=== PATIENT | male | born 1950 | race Caucasian/White ===

== ENCOUNTER 2019-05-01 11:49 | Day surgery (SDC) | payer BC ==
[~2019-05-01] VITALS: Ht 172.7 cm; Wt 86.6 kg
[~2019-05-01 11:49] MED LIST: Aspir 8181 MG PO; CALCIUM 600 +1 EA11 PO; LOSARTAN POTAS100 MG PO; OMEPRAZOLE20 MG PO; Once Daily1 EACH PO; TUMS500 MG PO; Ziac 10-6.25 M1 EACH PO
--- NOTE | 2019-05-01 12:37 | NUR ---
05/01/19 1237 Kenyatta Romeo 1 TRY, VEIN MOVED 2 TRY ABOVE, TOUGH DIDNT GET FLASH, HARDLY BLED 3 HAND GOOD
== END 2019-05-01 14:02 | disposition home or self-care (01) ==
LOC: ORSCSDS 11:49
PROVIDERS: Internal Medicine Gastroenterology
PROC: 0DJD8ZZ Inspection of Lower Intestinal Tract, Via Natural or Artificial Opening Endoscopic (ICD-10-PCS; principal; 2019-05-01 13:00)
DX: Z12.11 Encounter for screening for malignant neoplasm of colon (principal); Z86.010 Personal history of colon polyps; K57.30 Diverticulosis of large intestine without perforation or abscess without bleeding; G47.30 Sleep apnea, unspecified; Z80.0 Family history of malignant neoplasm of digestive organs; I10 Essential (primary) hypertension; K21.9 Gastro-esophageal reflux disease without esophagitis; E66.9 Obesity, unspecified; Z68.30 Body mass index [BMI] 30.0-30.9, adult; Z79.82 Long term (current) use of aspirin; Z79.899 Other long term (current) drug therapy
CPT/HCPCS: J2704; J7120

== ENCOUNTER 2019-08-24 05:40 | Day surgery (SDC) | payer BC ==
[~2019-08-24] VITALS: Ht 172.7 cm; Wt 90.1 kg
[~2019-08-24 05:40] MED LIST changes: +HYDCOR2.5C PR; +TADA10TA PO
--- NOTE | 2019-08-24 06:35 | NUR ---
PT ADMITTED TO [facility]. AGREES WITH PLANNED SURGERY. LUNG SOUNDS CLEAR.
--- NOTE | 2019-08-24 10:29 | NUR ---
Patient up to Ambulate independently. Gait steady. Discharge instructions reviewed with patient. Patient verbalizes understanding. Copy given to patient to take home. Discharged via wheelchair to private car for ride home. ADDITIONAL PAIN PILL GIVEN WHILE PATIENT DRESSING DUE TO INCREASED PAIN WITH MOVEMENT.
--- NOTE | 2019-08-24 12:54 | NUR ---
CONSENT OBTAINED FROM PATIENT TO ACCESS RECORDS AND WITNESS SURGICAL PROCEDURE AT THE OR. AT 0645 CC
== END 2019-08-24 22:42 | disposition home or self-care (01) ==
LOC: ORSCMMR 05:40 → ORD 07:30 → ORSCMMR 22:42
PROVIDERS: Surgery
PROC: 0WUF0JZ Supplement Abdominal Wall with Synthetic Substitute, Open Approach (ICD-10-PCS; principal; 2019-08-24 07:30)
DX: K42.9 Umbilical hernia without obstruction or gangrene (principal); I10 Essential (primary) hypertension; G47.33 Obstructive sleep apnea (adult) (pediatric); K21.9 Gastro-esophageal reflux disease without esophagitis; Z79.899 Other long term (current) drug therapy; Z79.82 Long term (current) use of aspirin
CPT/HCPCS: A9270-GY; C1781; J0690; J1100; J1885; J2250; J2405; J2704; J2710; J3010; J7120

== ENCOUNTER 2022-07-24 08:25 | Inpatient (IN) | payer MEDICARE, BC ==
[~2022-07-24] VITALS: Ht 172.7 cm; Wt 94.3 kg
[2022-07-24 08:43] LABS: Hematocrit 45.1 % (37.0-53.0); Hemoglobin 15.4 g/dL (13.5-17.5); Mean Corpuscular HGB 30.4 pg (26.0-34.0); Mean Corpuscular HGB Conc 34.1 g/dL (31.5-36.5); Mean Corpuscular Volume 89 fL (80-100); Mean Platelet Volume 10.2 fL (9.1-12.4); Platelet Count 223 K/mm3 (150-400); RDW Coefficient Variation 13.2 % (11.7-14.2); RDW Standard Deviation 42.9 fL (35.1-46.3); Red Blood Cell Count 5.07 M/mm3 (4.30-5.90); White Blood Cell Count 13.43 K/mm3 (4.00-11.30)
[2022-07-24 09:05] LABS: Albumin, Blood 3.4 g/dL (3.4-5.0); Bilirubin, Total 0.5 mg/dL (0.1-1.0); Bun/Creatinine Ratio 26.6 (12.0-20.0); Calcium, Blood 8.3 mg/dL (8.5-10.1); Creatinine, Blood 0.9 mg/dL (0.60-1.20); Globulin, Blood 3.4 g/dL (2.2-4.0); Potassium, Blood 3.4 mmol/L (3.5-5.5); Total Protein, Blood 6.8 g/dL (6.4-8.2)
[2022-07-24 10:42] LABS: BASOPHILS PERCENT MAN 0 % (0-2); EOSINOPHILS ABSOLUTE MAN 0.13 K/mm3 (0.00-0.68); EOSINOPHILS PERCENT MAN 1 % (0-6); LYMPHOCYTES ABSOLUTE MAN 4.56 K/mm3 (0.84-5.20); LYMPHOCYTES PERCENT MAN 26 % (21-46); MONOCYTES ABSOLUTE MAN 1.61 K/mm3 (0.16-1.47); MONOCYTES PERCENT MAN 12 % (4-13); NEUTROPHILS ABSOLUTE MAN 7.11 K/mm3 (1.96-9.15); SEG NEUTROPHILS PERCENT MAN 53 % (41-73); TOTAL CELLS COUNTED 100
[2022-07-24 10:43] LABS: LYMPHOCYTES % ATYPICAL MANUAL 8 % (0-0)
[2022-07-24 10:57] LABS: Influenza A, PCR NEGATIVE (NEGATIVE); Influenza B, PCR NEGATIVE (NEGATIVE); Resp Syncytial Virus, PCR NEGATIVE (NEGATIVE); SARS-Cov-2 (COVID-19) PCR, MMC NEGATIVE (NEGATIVE)
[2022-07-24 11:38] LABS: PCO2 Arterial 38.8 mmHg (35-45); PO2 Arterial 54.4 mmHg (80-100); pH Blood Arterial 7.42 (7.35-7.45)
[2022-07-24 12:51] LABS: International Normalized Ratio 0.98; Prothrombin Time Results 10.3 Sec (9.7-11.5)
--- NOTE | 2022-07-24 17:28 | NUR ---
FULL REPORT GIVEN TO GINA ORR WITH [facility]. DENIES QUESTIONS OR CONCERNS.
== END 2022-07-24 18:00 | disposition short-term general hospital (02) | DRG 215 ==
LOC: ER 08:25 → ICUW 12:02 → PCU 12:11 → ICUW 12:11
PROVIDERS: Emergency Medicine; Internal Medicine Cardiovascular Disease; Nurse Practitioner Acute Care; Physician Assistant; ADMIT Internal Medicine
PROC: 02HA3RZ Insertion of Short-term External Heart Assist System into Heart, Percutaneous Approach (ICD-10-PCS; principal; 2022-07-24)
PROC: 5A0221D Assistance with Cardiac Output using Impeller Pump, Continuous (ICD-10-PCS; 2022-07-24)
PROC: B211YZZ Fluoroscopy of Multiple Coronary Arteries using Other Contrast (ICD-10-PCS; 2022-07-24)
PROC: 02HP32Z Insertion of Monitoring Device into Pulmonary Trunk, Percutaneous Approach (ICD-10-PCS; 2022-07-24)
PROC: 5A09357 Assistance with Respiratory Ventilation, Less than 24 Consecutive Hours, Continuous Positive Airway Pressure (ICD-10-PCS; 2022-07-24)
PROC: B215YZZ Fluoroscopy of Left Heart using Other Contrast (ICD-10-PCS; 2022-07-24)
DX: I21.4 Non-ST elevation (NSTEMI) myocardial infarction (principal); R57.0 Cardiogenic shock; I50.41 Acute combined systolic (congestive) and diastolic (congestive) heart failure; J96.01 Acute respiratory failure with hypoxia; I24.9 Acute ischemic heart disease, unspecified; I25.10 Atherosclerotic heart disease of native coronary artery without angina pectoris; I11.0 Hypertensive heart disease with heart failure; E11.65 Type 2 diabetes mellitus with hyperglycemia; E78.5 Hyperlipidemia, unspecified; G47.33 Obstructive sleep apnea (adult) (pediatric); K21.9 Gastro-esophageal reflux disease without esophagitis; I25.5 Ischemic cardiomyopathy; Z20.822 Contact with and (suspected) exposure to COVID-19; Z77.22 Contact with and (suspected) exposure to environmental tobacco smoke (acute) (chronic); Z98.52 Vasectomy status; Z98.890 Other specified postprocedural states; Z88.0 Allergy status to penicillin; Z79.899 Other long term (current) drug therapy; Z79.82 Long term (current) use of aspirin; Z99.81 Dependence on supplemental oxygen
CPT/HCPCS: 0241U; 33990; 36600; 71045; 71260; 76937; 80053; 82803; 83605; 83880; 84484; 85025; 85347; 85610; 93005; 93010; 93308; 93321; 93460; 96374-59; 96375; 99152; 99153; 99285-25; A9270; C1751; C1760; C1769; C1887; C1894; J1644; J1940; J2250; J2270; J2370; J3010; J7030; J7040; J7042; J7050; J7060; Q9967

== ENCOUNTER 2022-08-05 12:44 | Emergency (ER) | payer BC ==
[~2022-08-05] VITALS: Ht 170.2 cm; Wt 81.7 kg
== END 2022-08-05 15:45 | disposition home or self-care (01) ==
LOC: ER 12:44
DX: Z48.00 Encounter for change or removal of nonsurgical wound dressing (principal); I10 Essential (primary) hypertension; Z79.82 Long term (current) use of aspirin; Z79.899 Other long term (current) drug therapy
CPT/HCPCS: 99283

== ENCOUNTER 2022-08-14 03:28 | Inpatient (IN) | payer MEDICARE, BC ==
[~2022-08-14] VITALS: Ht 172.7 cm; Wt 88.4 kg
[2022-08-14] MEDS ORDERED: PANTOPRAZOLE SO40 M2 PO (03:48)
[2022-08-14 03:50] LABS: BASOPHILS ABSOLUTE AUTO 0.02 K/mm3 (0.00-0.23); BASOPHILS PERCENT AUTO 0 % (0-2); EOSINOPHILS ABSOLUTE AUTO 0.02 K/mm3 (0.00-0.68); EOSINOPHILS PERCENT AUTO 0 % (0-6); Hematocrit 32.7 % (37.0-53.0); Hemoglobin 10.8 g/dL (13.5-17.5); IMMATURE GRAN ABSOLUTE AUTO 0.04 K/mm3 (0.00-0.10); IMMATURE GRAN PERCENT AUTO 0 % (0-1); LYMPHOCYTES ABSOLUTE AUTO 0.68 K/mm3 (0.84-5.20); LYMPHOCYTES PERCENT AUTO 7 % (21-46); MONOCYTES ABSOLUTE AUTO 0.58 K/mm3 (0.16-1.47); MONOCYTES PERCENT AUTO 6 % (4-13); Mean Corpuscular HGB 30.2 pg (26.0-34.0); Mean Corpuscular Volume 91 fL (80-100); Mean Platelet Volume 9.5 fL (9.1-12.4); NEUTROPHILS ABSOLUTE AUTO 8.49 K/mm3 (1.96-9.15); NEUTROPHILS PERCENT AUTO 86 % (41-73); Platelet Count 278 K/mm3 (150-400); RDW Coefficient Variation 14.5 % (11.7-14.2); RDW Standard Deviation 48.1 fL (35.1-46.3); Red Blood Cell Count 3.58 M/mm3 (4.30-5.90); White Blood Cell Count 9.83 K/mm3 (4.00-11.30)
[2022-08-14] MEDS ORDERED: ATOR80 PO (03:50)
[2022-08-14] MEDS ORDERED: BRILINTA90 M2 PO (03:52)
[2022-08-14] MEDS ORDERED: METO25ER PO (03:52)
[2022-08-14] MEDS ORDERED: FARXIGA10 MG PO (03:52)
[2022-08-14] MEDS ORDERED: ENTRESTO 49 MG1 EAC2 (03:53)
[2022-08-14] MEDS ORDERED: SPIR25 PO (03:53)
[2022-08-14] MEDS ORDERED: TAMS.4ER PO (03:54)
[2022-08-14] MEDS ORDERED: POTCHL20ER PO (03:54)
[2022-08-14 04:09] LABS: Albumin, Blood 2.7 g/dL (3.4-5.0); Albumin/Globulin Ratio 0.7 (0.8-1.8); Bilirubin, Total 0.9 mg/dL (0.1-1.0); Bun/Creatinine Ratio 21.5 (12.0-20.0); Calcium, Blood 8.2 mg/dL (8.5-10.1); Creatinine, Blood 0.84 mg/dL (0.60-1.20); Globulin, Blood 3.7 g/dL (2.2-4.0); Potassium, Blood 3.8 mmol/L (3.5-5.5); Total Protein, Blood 6.4 g/dL (6.4-8.2)
[2022-08-14 04:33] LABS: Influenza A, PCR NEGATIVE (NEGATIVE); Influenza B, PCR NEGATIVE (NEGATIVE); Resp Syncytial Virus, PCR NEGATIVE (NEGATIVE); SARS-Cov-2 (COVID-19) PCR, MMC NEGATIVE (NEGATIVE)
[2022-08-14 06:50] LABS: Source, Urine Foley catheter
[2022-08-14 07:02] LABS: Bilirubin, Urine Neg (Neg); Blood, Urine 5+ (Neg); Glucose Qualitative, Urine 4+ (Neg); Ketones, Urine 2+ (Neg); Leukocyte Esterase, Urine 3+ (Neg); Nitrite, Urine Pos (Neg); Protein, Urine 3+ (Neg); Specific Gravity, Urine 1.015 (1.003-1.022); Urobilinogen, Urine 1+ (Normal)
[2022-08-14 07:10] LABS: Appearance, Urine Hazy (Clear); Bacteria Few /hpf; Color, Urine Brown (P-Yellow); Red Blood Cells, Urine TNTC /hpf (0-2); Squamous Epithelial Cells Rare /hpf (Few); White Blood Cells, Urine TNTC /hpf (0-5); Yeast/Fungi Urine Few /hpf
--- NOTE | 2022-08-14 18:10 | NUR ---
PCU ADMIT / END OF SHIFT NOTE PT BROUGHT TO PCU-14 BY ANGELA FROM ER @ 2434. PT A&O X4, ABLE TO STAND & WEAKLY AMBULATE FROM [facility] TO PCU BED. PT REPORTING DIZZINESS W/ SITTING UP. PT BP LOW, OTHERWISE VSS. PT REPORTING BP HAS BEEN RUNNING LOW EVER SINCE STARTING BP MEDICATIONS. SPO2 > 92% ON RA. PT W/ THOMAS CATH IN PLACE THAT PT REPORTS HAVING BEEN CHANGED IN ER. THOMAS CATH DRAING DARK YELLOW URINE. PT C/O "SHIVERING" AT ONE POINT DURING SHIFT. PT TEMPORAL TEMP & ORAL TEMP WNL. PT MEDICATED W/ PRN TYLENOL PER PT REQUEST. PT THEN REPORTING NO LONGER SHIVERING OR "FREEZING." PT IN BED W/ CALL LIGHT IN REACH. PT AGREEABLE TO USING CALL LIGHT FOR ASSISTANCE OOB D/T LOW BP. ONE TIME LR GTT INFUSING.
--- NOTE | 2022-08-15 05:44 | NUR ---
PT SLEPT OFF AND ON ALL NIGHT, VSS, TMAX 99.8, TYLENOL PRN X1, GOOD UO
--- NOTE | 2022-08-15 18:31 | NUR ---
SHIFT SUMMARY PATIENT ALERT AND ORIENTED X4. PATIENT HAD NO COMPLAINTS OF PAIN OR SHORTNESS OF BREATH. PATIENT NOW MEDICAL/NO TELE STATUS. NO ACUTE ISSUES NOTED TODAY. CALL LIGHT WITHIN REACH.
--- NOTE | 2022-08-16 05:14 | NUR ---
SHIFT SUMMARY PT A&Ox4, CALLS AND COMMUNICATES NEEDS APPROPRIATELY. VSS, PT REMAINED MEDICAL STATUS NO TELE. BP STABLE, DENIES CP/PRESSURE. SpO2> 92% RA, REFUSED CPAP THROUGHOUT NIGHT, DENIES SOB. THOMAS CATHETER IN PLACE, PATENT, DRAINING TO GRAVITY. NO OTHER EVENTS THIS SHIFT, WILL REPORT TO ONCOMING RN.
[2022-08-16] MEDS ORDERED: CIPR500 PO (14:58)
--- NOTE | 2022-08-16 15:57 | NUR ---
DISCHARGE NOTE PATIENT ALERT AND ORIENTED X4. PATIENT PROVIDED WITH DISCHARGE INSTRUCTIONS AND EDUCATED ON HOW TO TAKE HIS MEDICATIONS WHEN HE GETS HOME. IV REMOVED. PATIENT ESCORTED VIA WHEELCHAIR TO [facility] [facility].
== END 2022-08-16 15:55 | disposition home or self-care (01) | DRG 698 ==
LOC: ER 03:28 → PCU 03:29
PROVIDERS: Student in an Organized Health Care Education/Training Program; ADMIT Internal Medicine
PROC: 5A09357 Assistance with Respiratory Ventilation, Less than 24 Consecutive Hours, Continuous Positive Airway Pressure (ICD-10-PCS; principal; 2022-08-15)
DX: T83.511A Infection and inflammatory reaction due to indwelling urethral catheter, initial encounter (principal); I21.3 ST elevation (STEMI) myocardial infarction of unspecified site; N39.0 Urinary tract infection, site not specified; I25.10 Atherosclerotic heart disease of native coronary artery without angina pectoris; R33.8 Other retention of urine; G47.33 Obstructive sleep apnea (adult) (pediatric); E11.9 Type 2 diabetes mellitus without complications; I10 Essential (primary) hypertension; K21.9 Gastro-esophageal reflux disease without esophagitis; I95.2 Hypotension due to drugs; T46.5X5A Adverse effect of other antihypertensive drugs, initial encounter; B96.89 Other specified bacterial agents as the cause of diseases classified elsewhere; B95.2 Enterococcus as the cause of diseases classified elsewhere; Z20.822 Contact with and (suspected) exposure to COVID-19; Z88.0 Allergy status to penicillin; Z79.899 Other long term (current) drug therapy; Z99.81 Dependence on supplemental oxygen; Z79.02 Long term (current) use of antithrombotics/antiplatelets; Z79.82 Long term (current) use of aspirin; Z98.52 Vasectomy status; Z98.890 Other specified postprocedural states; Z95.5 Presence of coronary angioplasty implant and graft; Z87.09 Personal history of other diseases of the respiratory system; Y84.6 Urinary catheterization as the cause of abnormal reaction of the patient, or of later complication, without mention of misadventure at the time of the procedure
CPT/HCPCS: 0241U; 51702; 71045; 80053; 81001; 82947; 83605; 83690; 84484; 85025; 87077; 87086; 87186; 93005; 93010; 94660; 94762; 96365; 96365-59; 96366; 97112; 97161; 99285-25; A9270; G0378; J1956; J7030; J7120

== ENCOUNTER → 2022-09-07 | Outpatient (CLI) | payer MEDICARE, BC ==
[~2022-09-07] MED LIST changes: +ATOR80 PO; +BRILINTA90 M2 PO; +CIPR500 PO; +ENTRESTO 49 MG1 EAC2; +FARXIGA10 MG PO; +METO25ER PO; +PANTOPRAZOLE SO40 M2 PO; +POTCHL20ER PO; +SPIR25 PO; +TAMS.4ER PO
== END | disposition home or self-care (01) ==
LOC: LAB SHORT 11:46
DX: N39.0 Urinary tract infection, site not specified (principal)
CPT/HCPCS: 87077; 87086; 87186

== ENCOUNTER → 2023-04-07 | Outpatient (CLI) | payer BC ==
[2023-04-07 11:13] LABS: Source, Urine Clean Catch
[2023-04-07 11:22] LABS: BASOPHILS ABSOLUTE AUTO 0.06 K/mm3 (0.00-0.23); BASOPHILS PERCENT AUTO 1 % (0-2); EOSINOPHILS PERCENT AUTO 1 % (0-6); Hematocrit 47.5 % (37.0-53.0); Hemoglobin 16.1 g/dL (13.5-17.5); IMMATURE GRAN ABSOLUTE AUTO 0.02 K/mm3 (0.00-0.10); IMMATURE GRAN PERCENT AUTO 0 % (0-1); LYMPHOCYTES ABSOLUTE AUTO 1.55 K/mm3 (0.84-5.20); LYMPHOCYTES PERCENT AUTO 14 % (21-46); MONOCYTES ABSOLUTE AUTO 0.82 K/mm3 (0.16-1.47); MONOCYTES PERCENT AUTO 7 % (4-13); Mean Corpuscular HGB 30.7 pg (26.0-34.0); Mean Corpuscular HGB Conc 33.9 g/dL (31.5-36.5); Mean Corpuscular Volume 91 fL (80-100); Mean Platelet Volume 10.4 fL (9.1-12.4); NEUTROPHILS PERCENT AUTO 77 % (41-73); Platelet Count 164 K/mm3 (150-400); RDW Coefficient Variation 13.1 % (11.7-14.2); RDW Standard Deviation 43.1 fL (35.1-46.3); Red Blood Cell Count 5.25 M/mm3 (4.30-5.90); White Blood Cell Count 11.05 K/mm3 (4.00-11.30)
[2023-04-07 11:36] LABS: Albumin/Globulin Ratio 1.3 (0.8-1.8); Bilirubin, Total 0.6 mg/dL (0.1-1.0); Bun/Creatinine Ratio 16.1 (12.0-20.0); Calcium, Blood 8.9 mg/dL (8.5-10.1); Creatinine, Blood 0.93 mg/dL (0.60-1.20); Globulin, Blood 3.1 g/dL (2.2-4.0); Potassium, Blood 4.6 mmol/L (3.5-5.5); Total Protein, Blood 7.1 g/dL (6.4-8.2)
[2023-04-07 11:45] LABS: Bacteria Many /hpf; Squamous Epithelial Cells Rare /hpf (Few); White Blood Cells, Urine 50-100 /hpf (0-5)
== END ==
LOC: LAB SHORT 11:11 → LAB 11:11
PROVIDERS: Emergency Medicine
DX: E11.9 Type 2 diabetes mellitus without complications (principal); R35.0 Frequency of micturition; R81 Glycosuria
CPT/HCPCS: 80053; 81015; 83036; 85025

== ENCOUNTER 2023-08-12 19:05 | Emergency (ER) | payer BC ==
[~2023-08-12] VITALS: Ht 172.7 cm; Wt 88.5 kg
[2023-08-12 19:53] LABS: Source, Urine Clean Catch
[2023-08-12 20:03] LABS: BASOPHILS ABSOLUTE AUTO 0.06 K/mm3 (0.00-0.23); BASOPHILS PERCENT AUTO 1 % (0-2); EOSINOPHILS ABSOLUTE AUTO 0.16 K/mm3 (0.00-0.68); EOSINOPHILS PERCENT AUTO 2 % (0-6); Hematocrit 42.9 % (37.0-53.0); Hemoglobin 14.2 g/dL (13.5-17.5); IMMATURE GRAN ABSOLUTE AUTO 0.04 K/mm3 (0.00-0.10); IMMATURE GRAN PERCENT AUTO 0 % (0-1); LYMPHOCYTES ABSOLUTE AUTO 1.93 K/mm3 (0.84-5.20); LYMPHOCYTES PERCENT AUTO 19 % (21-46); MONOCYTES ABSOLUTE AUTO 1.32 K/mm3 (0.16-1.47); MONOCYTES PERCENT AUTO 13 % (4-13); Mean Corpuscular HGB 30.5 pg (26.0-34.0); Mean Corpuscular HGB Conc 33.1 g/dL (31.5-36.5); Mean Corpuscular Volume 92 fL (80-100); Mean Platelet Volume 11.2 fL (9.1-12.4); NEUTROPHILS ABSOLUTE AUTO 6.63 K/mm3 (1.96-9.15); NEUTROPHILS PERCENT AUTO 65 % (41-73); Platelet Count 179 K/mm3 (150-400); RDW Coefficient Variation 13.2 % (11.7-14.2); RDW Standard Deviation 44.9 fL (35.1-46.3); Red Blood Cell Count 4.66 M/mm3 (4.30-5.90); White Blood Cell Count 10.14 K/mm3 (4.00-11.30)
[2023-08-12 20:04] LABS: Appearance, Urine Hazy (Clear); Bilirubin, Urine Neg (Neg); Blood, Urine 3+ (Neg); Color, Urine Yellow (P-Yellow); Glucose Qualitative, Urine Neg (Neg); Ketones, Urine Neg (Neg); Leukocyte Esterase, Urine 3+ (Neg); Nitrite, Urine Pos (Neg); Protein, Urine 2+ (Neg); Specific Gravity, Urine 1.015 (1.003-1.022); Urobilinogen, Urine NORM (Normal)
[2023-08-12 20:17] LABS: Bacteria Many /hpf; Red Blood Cells, Urine 0-2 /hpf (0-2); Squamous Epithelial Cells Not Seen /hpf (Few); White Blood Cells, Urine TNTC /hpf (0-5)
[2023-08-12 20:24] LABS: Albumin, Blood 3.9 g/dL (3.4-5.0); Albumin/Globulin Ratio 1.3 (0.8-1.8); Bilirubin, Total 0.8 mg/dL (0.1-1.0); Bun/Creatinine Ratio 24.1 (12.0-20.0); Calcium, Blood 8.5 mg/dL (8.5-10.1); Creatinine, Blood 0.83 mg/dL (0.60-1.20); Globulin, Blood 2.9 g/dL (2.2-4.0); Total Protein, Blood 6.8 g/dL (6.4-8.2)
[2023-08-13 00:47] VITALS: BP 138/81
[2023-08-13] MEDS ORDERED: Miralax17 GM PO (01:02)
== END 2023-08-13 01:24 | disposition home or self-care (01) ==
LOC: ER 19:05
PROVIDERS: Student in an Organized Health Care Education/Training Program
DX: K62.5 Hemorrhage of anus and rectum (principal); R82.81 Pyuria; Z88.0 Allergy status to penicillin; Z79.02 Long term (current) use of antithrombotics/antiplatelets; Z79.899 Other long term (current) drug therapy; Z79.82 Long term (current) use of aspirin; Z87.440 Personal history of urinary (tract) infections
CPT/HCPCS: 80053; 81001; 83690; 85025; 87086; 99283; A9270

== ENCOUNTER → 2024-04-09 | Outpatient (CLI) | payer BC ==
[~2024-04-09] MED LIST changes: +Miralax17 GM PO
== END ==
LOC: LAB SHORT 11:15 → LAB 11:15
DX: N39.0 Urinary tract infection, site not specified (principal)
CPT/HCPCS: 87077; 87086; 87186

== ENCOUNTER → 2024-08-24 | Outpatient (CLI) | payer BC, MEDICARE ==
[~2024-08-24] MED LIST changes: +CLOP75; +DUTA.5; +VALS80
[2024-08-24 12:38] LABS: Source, Urine Clean Catch
[2024-08-24 13:54] LABS: Bilirubin, Urine Neg (Neg); Blood, Urine 2+ (Neg); Glucose Qualitative, Urine Neg (Neg); Ketones, Urine Neg (Neg); Leukocyte Esterase, Urine 3+ (Neg); Nitrite, Urine Pos (Neg); Protein, Urine 1+ (Neg); Urobilinogen, Urine NORM (Normal); pH, Urine 6.5 (5.0-8.0)
[2024-08-24 14:04] LABS: Appearance, Urine Hazy (Clear); Color, Urine Pale Yellow (P-Yellow)
[2024-08-24 14:05] LABS: White Blood Cells, Urine 50-100 /hpf (0-5)
[2024-08-24 14:06] LABS: Bacteria Many /hpf; Renal Epithelial Rare /hpf (0-Rare); Squamous Epithelial Cells Few /hpf (Few)
== END ==
LOC: LAB 12:37 → LAB SHORT 12:37 → EDSTATUS 08-10 12:00 → LAB FUT 08-10 12:00
PROVIDERS: Physician Assistant
DX: N39.0 Urinary tract infection, site not specified (principal)
CPT/HCPCS: 81001; 87077; 87086; 87186

== ENCOUNTER 2025-05-28 17:59 | Emergency (ER) | payer OTHER, MEDICARE, BC ==
[~2025-05-28] VITALS: Ht 172.7 cm; Wt 88.5 kg
[2025-05-28 18:30] VITALS: BP 138/85
== END 2025-05-28 19:18 | disposition home or self-care (01) ==
LOC: ER 17:59
DX: S63.501A Unspecified sprain of right wrist, initial encounter (principal); S80.212A Abrasion, left knee, initial encounter; Z88.0 Allergy status to penicillin; Z79.02 Long term (current) use of antithrombotics/antiplatelets; Z79.899 Other long term (current) drug therapy; W01.0XXA Fall on same level from slipping, tripping and stumbling without subsequent striking against object, initial encounter
CPT/HCPCS: 99283-25